=== PATIENT | female | born 1995 | race Hispanic/Latino ===

== ENCOUNTER 2017-09-18 16:50 | Emergency (ER) | payer BC ==
[2017-09-18 16:57] VITALS: BMI 20.3
[2017-09-18 17:00] VITALS: RESP 16; O2SAT 100
[2017-09-18] MEDS ORDERED: Sodium Chloride 0.9% 1,000 ML IV ONE (17:23)
[2017-09-18 17:29] LABS: SQUAMOUS EPITHIAL 1 /hpf (0-5); URINE BACTERIA RARE (<OCC); URINE BILIRUBIN NEGATIVE (NEGATIVE); URINE BLOOD 1+ (NEGATIVE); URINE CLARITY Clear (Clear); URINE COLOR Straw (YELLOW); URINE GLUCOSE (UA) NORMAL (Normal); URINE LEUKOCYTE ESTERASE NEG Leu/uL (Negative); URINE PROTEIN NEGATIVE (NEGATIVE); URINE UROBILINOGEN NORMAL mg/dL (0.2-1.0)
[2017-09-18 17:31] LABS: HCG,QUALITATIVE URINE NEGATIVE (NEGATIVE)
[2017-09-18] MEDS ORDERED: Sodium Chloride 0.9% 1,000 ML ONE (17:35)
[2017-09-18 17:42] LABS: BENZODIAZEPINES, UR NEGATIVE (NEGATIVE); OPIATES, UR NEGATIVE (NEGATIVE); PHENCYCLIDINE, UR NEGATIVE (NEGATIVE)
[2017-09-18 17:47] LABS: BASO # 0.1 K/uL (0.0-0.2); BASO % 1.1 % (0.0-2.0); EOS # 0.2 K/uL (0.0-0.7); EOS % 3.1 % (0.0-4.0); HEMOGLOBIN 14.7 g/dL (11.0-16.0); LYMPH # 2.2 K/uL (1.0-4.3); LYMPH % 29.9 % (20.0-40.0); MEAN CELL VOLUME 93.3 fL (81.0-99.0); MEAN CORPUSCULAR HEMOGLOBIN 32.6 pg (27.0-31.0); MEAN PLATELET VOLUME 8.1 fL (7.2-11.7); MONO # 0.7 K/uL (0.0-0.8); NEUT # 4.1 K/uL (1.8-7.0); NEUT % 55.9 % (50.0-75.0); RBC 4.5 Mil/uL (3.80-5.20); RED CELL DISTRIBUTION WIDTH 12.6 % (11.5-14.5); WHITE BLOOD COUNT 7.4 K/uL (4.8-10.8)
[2017-09-18 17:57] LABS: BARBITURATES, UR NEGATIVE (NEGATIVE)
[2017-09-18 18:01] LABS: CALCIUM 9.3 mg/dl (8.6-10.4); GFR AFRICAN-AMERICAN > 60; GFR NON-AFRICAN AMERICAN > 60; LIPASE 100 U/L (23-300)
[2017-09-18 18:03] LABS: ALB/GLOB RATIO 1.5 (1.0-2.1); ALBUMIN 5.1 g/dL (3.5-5.0); ALT/SGPT 11 U/L (9-52); AST/SGOT 54 U/L (14-36); BLOOD UREA NITROGEN 13 mg/dL (7-17)
--- NOTE | 2017-09-18 18:04 | C.PDOC ---
History Of Present Illness Patient is a 22 y/o female who presents to the ED with a complaint of crampy lower left back discomfort for the last 2 weeks. Patient reports pain worsened over the last 2 days, prompting visit. Patient admits to going to a minute clinic at a local [facility] yesterday and received a UA that showed no WBCs; patient was diagnosed with pyelonephritis without serology tests. Patient was prescribed bactrim BID for 14 days. Patient has since only taken Tylenol for discomfort without improvement. Denies any fever or chills. Admits to Hx of STDs and constipation. Patient notes she completed her menstrual period a few days ago, admitting she does not typically have pain like this. No other physical complaints at this time. Time Seen by Provider: 09/18/17 17:09 Chief Complaint (Nursing): Back Pain History Per: Patient History/Exam Limitations: no limitations Onset/Duration Of Symptoms: Days (2 weeks), Gradual Current Symptoms Are (Timing): Worse Quality Of Discomfort: Cramping Recent travel outside of the [place]: No Past Medical History Reviewed: Historical Data, Nursing Documentation, Vital Signs Vital Signs: Last Vital Signs Temp 98.0 F 09/18/17 16:59 Pulse 92 H 09/18/17 16:59 Resp 16 09/18/17 16:59 BP 123/81 09/18/17 16:59 Pulse Ox 100 09/18/17 18:04 - Medical History PMH: Asthma Other PMH: STDs Surgical History: No Surg Hx Family History: States: No Known Family Hx - Social History Hx Tobacco Use: No Hx Alcohol Use: Yes Hx Substance Use: No - Immunization History Hx Tetanus Toxoid Vaccination: No Hx Influenza Vaccination: Yes (04/2017) Hx Pneumococcal Vaccination: No Review Of Systems Constitutional: Negative for: Fever, Chills Gastrointestinal: Positive for: Abdominal Pain (crampy ) Physical Exam - Physical Exam Appears: No Acute Distress Skin: Normal Color, Warm, Dry Head: Atraumatic, Normacephalic Eye(s): bilateral: Abnormal Pupil (dilated pupils) Oral Mucosa: Moist Chest: Symmetrical Cardiovascular: Rhythm Regular, No Murmur Respiratory: Normal Breath Sounds, No Rales, No Rhonchi, No Wheezing Gastrointestinal/Abdominal: Bowel Sounds (normal), Soft, Tenderness (mild tenderness to left flank that is digitally reproduceable; tenderness to LUQ to deep palpation; negative Vigil's and negative McBurney's. ) Back: CVA Tenderness (pain to percussion to left CVA) Neurological/Psych: Oriented x3, Normal Speech, Other (no focal deficits) ED Course And Treatment - Laboratory Results Result Diagrams: 09/18/17 17:45 09/18/17 17:45 Lab Interpretation: Normal (ua neg.) Urine POC: Negative O2 Sat by Pulse Oximetry: 100 Pulse Ox Interpretation: Normal - Radiology CXR: Interpreted by Me CXR Interpretation: Yes: No Acute Disease - Other Rad abd x 2 views X-Ray: Interpreted by Me (+FOS) Progress Note: obstructive series ordered. Toradol and IV fluids administered. Medical Decision Making Medical Decision Making: chronic constipation though a thin woman. No /ectopic NO pyelonephritis (as diagnosed yesterday) with clean urine and no leukocytosis Disposition Doctor Will See Patient In The: Office Counseled Patient/Family Regarding: Studies Performed, Diagnosis - Disposition Referrals: [facility] [Outside] Disposition: HOME/ ROUTINE Disposition Time: 18:03 Condition: GOOD Additional Instructions: drink a laxative of your choice and re-evaluate your abdominal discomfort after using the bathroom 2-3 times Repeat laxative therapy until effective Recommended: drink an entire bottle of Mag Citrate rapidly. STOP any antibiotics prescribed yesterday. you have NO UTI and NO Pyelonephritis. Diet and exercise changes 7 fresh fruits and vegetables daily Follow-up in our outpatient Family Practice Clinic (free) as needed Instructions: Constipation in Adults Forms: [facility] (Vietnamese) - Clinical Impression Clinical Impression: History of abdominal colic - Scribe Statement The provider has reviewed the documentation as recorded by the Scribcristiano Tolentino All medical record entries made by the Scribe were at my direction and personally dictated by me. I have reviewed the chart and agree that the record accurately reflects my personal performance of the history, physical exam, medical decision making, and the department course for this patient. I have also personally directed, reviewed, and agree with the discharge instructions and disposition.
[2017-09-18 18:36] VITALS: BP 128/76; PULSE 86; TEMP 98.2
--- NOTE | 2017-09-18 20:55 | RAD ---
PROCEDURE: Radiographs of the chest and abdomen (obstructive series) HISTORY: abd pain COMPARISON: None available TECHNIQUE: AP radiograph of the chest, with upright and supine radiographs of the abdomen. FINDINGS: CHEST: Heart size appears within normal limits. No focal consolidation, significant pleural effusion, or definite pneumothorax identified.Please note that chest x-ray has limited sensitivity for the detection of pulmonary masses. ABDOMEN AND PELVIS: Nonobstructive bowel gas pattern. No definite free air. Mild constipation. No acute osseous abnormality is detected. IMPRESSION: Mild constipation.
== END 2017-09-18 18:36 | disposition home or self-care (01) ==
LOC: C.ER 16:50
DX: R10.84 Generalized abdominal pain (principal)
CPT/HCPCS: 74022; 80053; 81001; 83690; 84703; 85025; 96361; 96374; 99284; G0480; J1885; J7040